=== PATIENT | male | born 1985 | race African-American/Black ===

== ENCOUNTER 2020-06-12 02:35 | Emergency (ER) | payer MEDICAID ==
[~2020-06-12] VITALS: Ht 157.5 cm; Wt 73.0 kg
[2020-06-12] MEDS ORDERED: LABETALOL 5MG/ML SYR 20 MG/4 ML SYRINGE IV ONE (03:45)
[2020-06-12] MEDS ORDERED: NITROGLYCERIN OINT 1GM/INCH UDPKT TD ONE (03:45)
[2020-06-12 04:36] LABS: BASOPHILS % 0.8 % (0.0-2.0); EOSINOPHILS % 1.1 % (0.0-5.0); HEMATOCRIT. 45.2 % (42.0-52.0); MEAN CORPUSCULAR HEMOGLOBIN 26.4 pg (28.0-32.0); MEAN CORPUSCULAR VOLUME 79.4 fL (80.0-94.0); MEAN PLATELET VOLUME 8.7 fl (7.4-10.4); MONOCYTES % 6.3 % (2.0-8.0); NEUTROPHILS % 76.8 % (40.0-76.0); PLATELET 192 x1000/uL (130-400); RED CELL DISTRIBUTION WIDTH 13.9 % (11.6-14.6)
[2020-06-12 04:51] LABS: CHLORIDE 105 mEq/L (98-107)
[2020-06-12 07:00] VITALS: BP 141/93
== END 2020-06-12 07:15 | disposition home or self-care (01) ==
LOC: ER 02:44
DX: I16.0 Hypertensive urgency (principal); I11.0 Hypertensive heart disease with heart failure; I50.9 Heart failure, unspecified
CPT/HCPCS: 36415; 71045; 80053; 83880; 84484; 85025; 85379; 93005; 96374; 99285; J3490; Z7610